=== PATIENT | male | born 1975 | race Caucasian/White ===

== ENCOUNTER 2018-10-08 11:59 | Emergency (ER) | payer OTHER ==
[2018-10-08] MEDS: ACETAMINOPHEN 325 MG TAB PO (15:12)
== END 2018-10-08 16:41 | disposition home or self-care (01) ==
LOC: FTE 11:59
DX: S99.921A Unspecified injury of right foot, initial encounter (principal); J45.909 Unspecified asthma, uncomplicated; W20.8XXA Other cause of strike by thrown, projected or falling object, initial encounter; Y92.9 Unspecified place or not applicable; Z79.82 Long term (current) use of aspirin; Z79.84 Long term (current) use of oral hypoglycemic drugs
CPT/HCPCS: 73660; 99283-25